=== PATIENT | female | born 1975 | race Caucasian/White ===

== ENCOUNTER 2018-09-07 18:30 | Emergency (ER) | payer BC ==
[~2018-09-07] VITALS: Ht 170.1 cm; Wt 77.1 kg
[~2018-09-07 18:30] MED LIST: ALA-CORT28.4 GM T; BACTRIM DS 8001 TAB PO; CLARITIN10 MG PO; COMBIVENT1 ARO IH; CONZIP100 MG PO; DOXYCYCLINE100 M3 PO; KEFLEX500 M1 PO; LEVAQUIN250 MG PO; LYRICA150 MG PO; MEDROL DOSEPAK4 MG PO; MOTRIN800 MG PO; PEPCID20 MG PO; TRAMADOL50 MG PO; ULTRAM50 MG PO; VICODIN ES 7501 TAB PO; ZITHROMAX Z PA250 MG PO
[2018-09-07 18:31] VITALS: BP 172/98
[2018-09-07 19:12] LABS: BASO % 0.2 % (0.0-1.0); EOS # 0.1 10*3/uL (0.0-0.4); EOS % 0.8 % (1.0-4.0); HEMATOCRIT 35.9 % (37.0-47.0); HEMOGLOBIN 12.2 g/dl (12.0-16.0); LYMPH % 37.4 % (27.0-41.0); MEAN CELL VOLUME 99.2 fl (81.0-99.0); MEAN CORPUSCULAR HGB 33.7 pg (27.0-31.0); MEAN PLATELET VOLUME 10.2 fl (9.6-12.3); MONO # 0.8 10*3/uL (0.1-1.0); MONO % 5.9 % (3.0-9.0); NEUT # 7.3 10*3/uL (2.3-7.9); NEUT % 55.3 % (47.0-73.0); PLATELET COUNT AUTOMATED 237 10*3/uL (130-400); RED BLOOD COUNT 3.62 10*6/uL (4.10-5.10); RED CELL DISTRI WIDTH 12.7 % (0-14.5); WHITE BLOOD COUNT 13.2 10*3/uL (4.8-10.8)
[2018-09-07 19:32] LABS: ALBUMIN 3.4 gm/dl (3.1-4.5); ALKALINE PHOSPHATASE 71 U/L (45-117); BUN 10 mg/dl (7-24); CHLORIDE 103 mmol/L (98-107); CREATININE 0.78 mg/dL (0.55-1.02); POTASSIUM 3.6 mmol/L (3.5-5.1); SGOT/AST 10 IU/L (3-35); SGPT/ALT 20 U/L (12-78); SODIUM 138 mmol/L (136-145); TOTAL PROTEIN 7.2 gm/dL (6.4-8.2)
[2018-09-07] MEDS ORDERED: AUGMENTIN 875875 MG PO (20:15)
[2018-09-07] MEDS ORDERED: TESSALON PERLE100 M1 PO (20:15)
[2018-09-07] MEDS ORDERED: PREDNISONE50 MG PO (20:15)
== END 2018-09-07 20:23 | disposition home or self-care (01) ==
LOC: ED 18:30
PROVIDERS: Nurse Practitioner Family
DX: J20.9 Acute bronchitis, unspecified (principal)

== ENCOUNTER 2018-09-21 13:11 | Emergency (ER) | payer BC ==
[~2018-09-21] VITALS: Ht 170.1 cm; Wt 78.0 kg
--- NOTE | ~2018-09-21 | EKG ---
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
--- NOTE | ~2018-09-21 | EKG ---
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
[~2018-09-21 13:11] MED LIST changes: +AUGMENTIN 875875 MG PO; +PREDNISONE50 MG PO; +TESSALON PERLE100 M1 PO
[2018-09-21 13:13] VITALS: BP 135/87
[2018-09-21 13:42] LABS: BASO % 0.3 % (0.0-1.0); EOS # 0.1 10*3/uL (0.0-0.4); HEMOGLOBIN 12.4 g/dl (12.0-16.0); LYMPH # 2.2 10*3/uL (1.3-4.4); LYMPH % 28.6 % (27.0-41.0); MEAN CELL VOLUME 97.8 fl (81.0-99.0); MEAN CORPUSCULAR HGB 33.7 pg (27.0-31.0); MEAN CORPUSCULAR HGB CONC 34.4 g/dl (33.0-37.0); MEAN PLATELET VOLUME 10.3 fl (9.6-12.3); MONO # 0.7 10*3/uL (0.1-1.0); MONO % 9.2 % (3.0-9.0); NEUT # 4.7 10*3/uL (2.3-7.9); NEUT % 60.6 % (47.0-73.0); PLATELET COUNT AUTOMATED 188 10*3/uL (130-400); RED BLOOD COUNT 3.68 10*6/uL (4.10-5.10); RED CELL DISTRI WIDTH 12.5 % (0-14.5); WHITE BLOOD COUNT 7.8 10*3/uL (4.8-10.8)
[2018-09-21 13:53] LABS: ACT PARTIAL THROMBO TIME 26.8 SECONDS (20.8-31.5); INTERNATIONAL NORM RATIO 0.9 (2.0-3.5)
[2018-09-21 14:00] LABS: ALBUMIN 3.2 gm/dl (3.1-4.5); ALKALINE PHOSPHATASE 75 U/L (45-117); BUN 8 mg/dl (7-24); CHLORIDE 104 mmol/L (98-107); CREATININE 0.67 mg/dL (0.55-1.02); POTASSIUM 4.1 mmol/L (3.5-5.1); SGOT/AST 29 IU/L (3-35); SGPT/ALT 97 U/L (12-78); SODIUM 135 mmol/L (136-145); TOTAL PROTEIN 6.9 gm/dL (6.4-8.2)
[2018-09-21 14:01] LABS: TROPONIN I < 0.015 ng/ml (<0.045)
[2018-09-21] MEDS ORDERED: Motrin,Rufen800 MG PO (17:13)
== END 2018-09-21 17:30 | disposition home or self-care (01) ==
LOC: ED 13:11
PROVIDERS: Emergency Medicine
DX: R09.1 Pleurisy (principal); Z79.2 Long term (current) use of antibiotics; Z79.899 Other long term (current) drug therapy; Z90.710 Acquired absence of both cervix and uterus

== ENCOUNTER 2019-09-12 12:43 | Emergency (ER) | payer BC ==
[~2019-09-12] VITALS: Ht 170.1 cm; Wt 78.9 kg
[~2019-09-12 12:43] MED LIST changes: +Motrin,Rufen800 MG PO
[2019-09-12 12:44] VITALS: BP 152/77
[2019-09-12] MEDS ORDERED: DOXYCYCLINE100 M3 PO (13:54)
[2019-09-12] MEDS ORDERED: IBUPROFEN600 MG PO (13:54)
== END 2019-09-12 14:01 | disposition left against medical advice (07) ==
LOC: ED 12:43
DX: L02.416 Cutaneous abscess of left lower limb (principal); L03.115 Cellulitis of right lower limb; R50.9 Fever, unspecified

== ENCOUNTER 2020-01-28 00:03 | Inpatient (IN) | payer BC ==
[~2020-01-28] VITALS: Ht 170.2 cm; Wt 83.6 kg
[2020-01-28] VITALS (8 sets, daily range): BP systolic 90–117; BP diastolic 55–70
[~2020-01-28 00:03] MED LIST changes: +IBUPROFEN600 MG PO
--- NOTE | 2020-01-28 00:54 | NUR ---
PT TO CT VIA WHEELCHAIR
[2020-01-28 00:58] LABS: BASO % 0.3 % (0.0-1.0); EOS # 0.1 10*3/uL (0.0-0.4); HEMATOCRIT 29.9 % (37.0-47.0); LYMPH # 3.7 10*3/uL (1.3-4.4); LYMPH % 26.4 % (27.0-41.0); MEAN CELL VOLUME 96.8 fl (81.0-99.0); MEAN CORPUSCULAR HGB 31.1 pg (27.0-31.0); MEAN CORPUSCULAR HGB CONC 32.1 g/dl (33.0-37.0); MONO # 0.6 10*3/uL (0.1-1.0); MONO % 4.1 % (3.0-9.0); NEUT # 9.6 10*3/uL (2.3-7.9); NEUT % 67.9 % (47.0-73.0); PLATELET COUNT AUTOMATED 316 10*3/uL (130-400); RED BLOOD COUNT 3.09 10*6/uL (4.10-5.10); RED CELL DISTRI WIDTH 13.5 % (0-14.5); WHITE BLOOD COUNT 14.1 10*3/uL (4.8-10.8)
--- NOTE | 2020-01-28 01:08 | NUR ---
PT BACK TO ROOM FROM CT. CALL LIGHT IN REACH. DENIES UNMET NEEDS. WILL CONTINUE TO MONITOR.
[2020-01-28 01:10] LABS: BUN 5 mg/dl (7-24); CHLORIDE 105 mmol/L (98-107); CREATININE 0.81 mg/dL (0.55-1.02); POTASSIUM 2.8 mmol/L (3.5-5.1); SODIUM 141 mmol/L (136-145)
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
--- NOTE | 2020-01-28 04:50 | NUR ---
Time: 449 A 45 year old FEMALE admitted to 4E under services of JAROD ROOT DO. Pt. arrived via stretcher from ER. Chief complaint: RT ARM ABSCESS. JAMARCUS LIU
--- NOTE | 2020-01-28 05:40 | NUR ---
DR. MENA NOTIFIED AT THIS TIME THAT PATIENT DENIES HAVING ANY HOME MEDICATIONS.Y
[2020-01-28 06:06] LABS: ALBUMIN 2.3 gm/dl (3.1-4.5); BASO % 0.3 % (0.0-1.0); BUN 5 mg/dl (7-24); CHLORIDE 106 mmol/L (98-107); CHOLESTEROL 106 mg/dL (<200); CREATININE 0.66 mg/dL (0.55-1.02); EOS # 0.1 10*3/uL (0.0-0.4); EOS % 1.1 % (1.0-4.0); HEMATOCRIT 25.6 % (37.0-47.0); LYMPH % 34.6 % (27.0-41.0); MEAN CELL VOLUME 96.6 fl (81.0-99.0); MEAN CORPUSCULAR HGB 30.9 pg (27.0-31.0); MEAN PLATELET VOLUME 10.6 fl (9.6-12.3); MONO # 0.6 10*3/uL (0.1-1.0); MONO % 7.2 % (3.0-9.0); NEUT % 56.6 % (47.0-73.0); PHOSPHOROUS 4.8 mg/dL (2.5-4.9); PLATELET COUNT AUTOMATED 237 10*3/uL (130-400); POTASSIUM 2.9 mmol/L (3.5-5.1); RED BLOOD COUNT 2.65 10*6/uL (4.10-5.10); RED CELL DISTRI WIDTH 13.3 % (0-14.5); SGOT/AST 9 IU/L (3-35); SGPT/ALT 17 U/L (12-78); SODIUM 139 mmol/L (136-145); TRIGLYCERIDES 91 mg/dl (<150); VLDL CHOLESTEROL 18 mg/dL (6-40); WHITE BLOOD COUNT 8.8 10*3/uL (4.8-10.8)
[2020-01-28 06:14] LABS: ALKALINE PHOSPHATASE 59 U/L (45-117); HDL CHOLESTEROL 20 mg/dl (40-60); LDL CHOLESTEROL 68 mg/dL (9-159); TOTAL PROTEIN 6.3 gm/dL (6.4-8.2)
--- NOTE | 2020-01-28 06:20 | NUR ---
NOTIFIED OF CONSULT AT THIS TIME FOR WOUND, POSSIBLE I&D OF RIGHT FOREARM, REQUESTED CT AND LAB RESULTS RELAYED. ORDERS RECEIVED TO KEEP PATIENT NPO NOW FOR POSSIBLE PROCEDURE.
[2020-01-28 07:03] LABS: VITAMIN D, 25-HYDROXY 25.9 ng/mL (30-100)
--- NOTE | 2020-01-28 10:29 | NUR ---
Power Systems Engineer in to talk to patient. Patient states lives at HOME with AND KIDS. There are NO steps in the home. Physician: [facility] Pharmacy: [facility] Home health services: NONE Patient's level of ADLs: INDEPENDENT Patient has working utilities: YES DME: NONE Follow-up physician's appointment after d/c: WILL BE MADE BY HOSPITALIST NURSE DIRECTOR ON DISCHARGE Does patient want to access PORTAL?: NO Discharge plan PT LIVES AT HOME WITH HER FAMILY AND IS INDEPENDENT IN HER CARE. DENIES SHE WILL HAVE ANY NEEDS ON DISCHARGE. PLAN IS TO RETURN HOME WITH ROCHELLEIY WHEN MEDICALLY STABLE. WILL CONTINUE TO FOLLOW. PT STATES WILL TAKE HER HOME. . JEREMY SUNSHINE
--- NOTE | 2020-01-28 13:10 | NUR ---
DR WATKINS CALLED RE: CONSULT AND NPO STATUS. MESSAGE LEFT. WILL AWAIT RETURN CALL
--- NOTE | 2020-01-28 15:48 | NUR ---
PT UPSET ABOUT NPO STATUS AND THAT DR WATKINS HASN'T BEEN HERE YET. DR WATKINS CALLED AGAIN RE: CONSULT AND NPO ORDER. MESSAGE LEFT TO CALL UNIT. WILL AWAIT RETURN CALL.
--- NOTE | 2020-01-28 16:00 | NUR ---
DR FROST CALLS UNIT, HE STATES HE IS COVERING FOR DR WATKINS. HE STATES HE WILL BE OVER TO SEE THE PATIENT.
--- NOTE | 2020-01-28 17:00 | NUR ---
DR FROST IN TO SEE PT. ORDERS RECEIVED FOR REGULAR DIET AND KEEP CURRENT DRSG ORDERS, WITH CHANGE OF OPTIFOAM AT THIS TIME.
--- NOTE | 2020-01-28 17:20 | NUR ---
DRSG CHANGED PER ORDERS. PT TOLERATED WELL. MODERATE SEROSANG/PURULENT DRAINAGE NOTED TO OLD DRSG. PT TOLERATED WELL
[2020-01-29] VITALS: BP 116/74
--- NOTE | 2020-01-29 05:00 | NUR ---
PATIENT DRESSING SOILED ON RIGHT FOREARM, DRESSING CHANGED AT THIS TIME. WILL CONTINUE TO MONITOR.
[2020-01-29 05:45] LABS: BUN 5 mg/dl (7-24); CHLORIDE 113 mmol/L (98-107); SODIUM 143 mmol/L (136-145)
[2020-01-29 06:16] LABS: BASO # 0.1 10*3/uL (0.0-0.1); BASO % 0.5 % (0.0-1.0); EOS # 0.1 10*3/uL (0.0-0.4); EOS % 0.8 % (1.0-4.0); HEMATOCRIT 27.7 % (37.0-47.0); LYMPH # 2.4 10*3/uL (1.3-4.4); LYMPH % 25.7 % (27.0-41.0); MEAN CELL VOLUME 96.2 fl (81.0-99.0); MEAN CORPUSCULAR HGB 30.9 pg (27.0-31.0); MEAN CORPUSCULAR HGB CONC 32.1 g/dl (33.0-37.0); MONO # 0.6 10*3/uL (0.1-1.0); NEUT # 6.3 10*3/uL (2.3-7.9); NEUT % 66.7 % (47.0-73.0); PLATELET COUNT AUTOMATED 295 10*3/uL (130-400); RED BLOOD COUNT 2.88 10*6/uL (4.10-5.10); RED CELL DISTRI WIDTH 13.5 % (0-14.5); WHITE BLOOD COUNT 9.5 10*3/uL (4.8-10.8)
[2020-01-29 08:00] VITALS: BP 121/88
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
== END 2020-01-29 10:40 | disposition left against medical advice (07) | DRG 871 ==
LOC: ED 00:03 → EDHOLD 04:02 → 4E 04:02
PROVIDERS: Internal Medicine; ADMIT Family Medicine
DX: A41.9 Sepsis, unspecified organism (principal); E43 Unspecified severe protein-calorie malnutrition; L02.413 Cutaneous abscess of right upper limb; R65.20 Severe sepsis without septic shock; D50.9 Iron deficiency anemia, unspecified; E87.6 Hypokalemia; R73.9 Hyperglycemia, unspecified; E55.9 Vitamin D deficiency, unspecified; Z53.29 Procedure and treatment not carried out because of patient's decision for other reasons; Z90.710 Acquired absence of both cervix and uterus; Z98.891 History of uterine scar from previous surgery; Z83.3 Family history of diabetes mellitus; Z80.8 Family history of malignant neoplasm of other organs or systems; Z84.89 Family history of other specified conditions; Z72.0 Tobacco use; Z71.6 Tobacco abuse counseling; Z68.28 Body mass index [BMI] 28.0-28.9, adult

== ENCOUNTER 2020-07-29 14:49 | Emergency (ER) | payer BC ==
[~2020-07-29] VITALS: Wt 76.2 kg
[2020-07-29 14:56] VITALS: BP 114/78
== END 2020-07-29 18:13 | disposition left against medical advice (07) ==
LOC: ED 14:49
DX: R19.7 Diarrhea, unspecified (principal); R11.10 Vomiting, unspecified; Z53.21 Procedure and treatment not carried out due to patient leaving prior to being seen by health care provider

== ENCOUNTER 2021-05-12 12:33 | Emergency (ER) | payer BC ==
[~2021-05-12] VITALS: Wt 61.2 kg
[2021-05-12 12:43] VITALS: BP 150/100
== END 2021-05-12 14:50 | disposition home or self-care (01) ==
LOC: ED 12:33
DX: T15.91XA Foreign body on external eye, part unspecified, right eye, initial encounter (principal); F17.200 Nicotine dependence, unspecified, uncomplicated; Z98.890 Other specified postprocedural states; Z90.711 Acquired absence of uterus with remaining cervical stump; Z87.442 Personal history of urinary calculi; X58.XXXA Exposure to other specified factors, initial encounter; Y93.89 Activity, other specified; Y92.89 Other specified places as the place of occurrence of the external cause; Y99.8 Other external cause status

== ENCOUNTER 2021-07-27 23:06 | Emergency (ER) | payer BC ==
[~2021-07-27] VITALS: Ht 170.1 cm; Wt 62.1 kg
[2021-07-27 23:13] VITALS: BP 167/97
[2021-07-27 23:32] LABS: BASO % 0.4 % (0.0-1.0); EOS # 0.1 10*3/uL (0.0-0.4); LYMPH # 3.7 10*3/uL (1.3-4.4); LYMPH % 40.3 % (27.0-41.0); MEAN CELL VOLUME 98.2 fl (81.0-99.0); MEAN CORPUSCULAR HGB 32.6 pg (27.0-31.0); MEAN CORPUSCULAR HGB CONC 33.2 g/dl (33.0-37.0); MEAN PLATELET VOLUME 9.6 fl (9.6-12.3); MONO # 0.6 10*3/uL (0.1-1.0); MONO % 6.9 % (3.0-9.0); NEUT # 4.7 10*3/uL (2.3-7.9); NEUT % 51.2 % (47.0-73.0); PLATELET COUNT AUTOMATED 274 10*3/uL (130-400); RED BLOOD COUNT 3.87 10*6/uL (4.10-5.10); RED CELL DISTRI WIDTH 12.3 % (0-14.5); WHITE BLOOD COUNT 9.3 10*3/uL (4.8-10.8)
[2021-07-27 23:37] LABS: BILIRUBIN Negative (Negative); BLOOD Trace-Lysed (Negative); CLARITY Cloudy (Clear); COLOR Yellow (Yellow); GLUCOSE Negative (Negative); KETONE Negative (Negative); LEUKO ESTERASE Trace (Negative); NITRITE Positive (Negative); SPECIFIC GRAVITY 1.025 (1.001-1.030)
[2021-07-27 23:46] LABS: URINE AMPHETAMINES > 1000 (1000ng/ml); URINE BARBITURATES < 200 (200ng/ml); URINE BENZODIAZEPINES < 200 (200ng/ml); URINE CANNABINOIDS (THC) > 50 (50ng/ml); URINE COCAINE < 300 (300ng/ml); URINE METHADONE < 300 (300ng/ml); URINE OPIATES < 300 (300ng/ml)
[2021-07-27 23:47] LABS: ALBUMIN 3.5 gm/dl (3.1-4.5); ALKALINE PHOSPHATASE 70 U/L (45-117); BUN 13 mg/dl (7-24); CHLORIDE 103 mmol/L (98-107); CREATININE 0.72 mg/dL (0.55-1.02); POTASSIUM 3.5 mmol/L (3.5-5.1); SGOT/AST 40 IU/L (3-35); SGPT/ALT 79 U/L (12-78); SODIUM 138 mmol/L (136-145); TOTAL PROTEIN 7.7 gm/dL (6.4-8.2)
[2021-07-27 23:48] LABS: BACTERIA 3+; CALCIUM OXALATE CRYSTALS 1+; EPITHELIAL CELLS TNTC; WBC 31-40 wbc/hpf (0-5)
[2021-07-27 23:50] LABS: URINE PHENCYCLIDINE < 25 (25ng/ml)
[2021-07-27 23:51] LABS: ACETAMINOPHEN (TYLENOL) < 5.0 ug/ml (10-30); ETHYL ALCOHOL < 3.0 mg/dl (<3)
== END 2021-07-27 23:49 | disposition left against medical advice (07) ==
LOC: ED 23:06
PROVIDERS: Internal Medicine
DX: F29 Unspecified psychosis not due to a substance or known physiological condition (principal)

== ENCOUNTER 2024-11-19 12:26 | Emergency (ER) | payer OTHER ==
[~2024-11-19] VITALS: Ht 170.1 cm; Wt 80.9 kg
[2024-11-19 12:46] VITALS: BP 137/92
[2024-11-19] MEDS ORDERED: Acetaminophen/Oxycodone 5 MG/325 MG TABLET PO ONE (13:00)
[2024-11-19] MEDS ORDERED: Amoxicillin/Clavulanate Pota 875 MG TAB PO ONE (13:00)
[2024-11-19] MEDS ORDERED: AMOX-CLAV 875-1 EACH PO (13:02)
[2024-11-19] MEDS ORDERED: MELOXICAM15 MG PO (13:02)
== END 2024-11-19 13:27 | disposition home or self-care (01) ==
LOC: ED 12:26
DX: K04.7 Periapical abscess without sinus (principal); R22.0 Localized swelling, mass and lump, head; I10 Essential (primary) hypertension; E78.5 Hyperlipidemia, unspecified; F17.200 Nicotine dependence, unspecified, uncomplicated; Z87.442 Personal history of urinary calculi; Z90.710 Acquired absence of both cervix and uterus; Z98.890 Other specified postprocedural states

== ENCOUNTER 2025-08-11 18:59 | Inpatient (IN) | payer SELFPAY ==
[~2025-08-11] VITALS: Ht 170.2 cm; Wt 80.4 kg
[~2025-08-11 18:59] MED LIST changes: +AMOX-CLAV 875-1 EACH PO; +MELOXICAM15 MG PO
[2025-08-11 20:45] VITALS: BP 184/78
[2025-08-11] MEDS ORDERED: SUBOXONE 8 MG-1 EACH BC (21:20)
[2025-08-11] MEDS ORDERED: BISACODYL 5 MG TAB PO PRN (21:35)
[2025-08-11] MEDS ORDERED: ACETAMINOPHEN 325 MG TAB PO PRN (21:35)
[2025-08-11] MEDS ORDERED: Ondansetron Hydrochloride 4 MG/2 ML VIAL IV PRN (21:35)
[2025-08-11] MEDS ORDERED: Vancomycin Hydrochloride 1,000 MG in SODIUM CHLORIDE 0.9% 250 ML IV SCH (21:55)
[2025-08-11 22:39] LABS: BASO # 0.0 10*3/uL (0.0-0.1); BASO % 0.6 % (0.0-1.0); EOS # 0.4 10*3/uL (0.0-0.4); EOS % 5.6 % (1.0-4.0); MEAN CELL VOLUME 100.0 fl (81.0-99.0); MEAN CORPUSCULAR HGB 32.8 pg (27.0-31.0); MEAN PLATELET VOLUME 10.9 fl (9.6-12.3); MONO # 0.7 10*3/uL (0.1-1.0); MONO % 11.3 % (3.0-9.0); NEUT # 2.3 10*3/uL (2.3-7.9); NEUT % 36.0 % (47.0-73.0); NUCLEATED RED BLOOD CELL 0.0 % (0.0-0.0); NUCLEATED RED BLOOD CELL 0.0 10*3/uL (0.0-0.0); PLATELET COUNT AUTOMATED 238 10*3/uL (130-400); RED CELL DISTRI WIDTH 12.0 % (0-14.5)
[2025-08-11 22:49] LABS: BUN 9 mg/dl (9-23)
[2025-08-12] VITALS: BP 148/84
[2025-08-12] MEDS ORDERED: Vancomycin Hydrochloride 1,000 MG in SODIUM CHLORIDE 0.9% 250 ML IV ONE
[2025-08-12] MEDS ORDERED: diphenhydrAMINE hydrochloride 50 MG/ML VIAL IV ONE (01:35)
[2025-08-12 02:01] VITALS: BP 147/86
[2025-08-12 06:36] LABS: ACT PARTIAL THROMBO TIME 32.0 SECONDS (20.0-32.1)
[2025-08-12 06:44] LABS: BASO # 0.0 10*3/uL (0.0-0.1); BASO % 0.9 % (0.0-1.0); EOS # 0.0 10*3/uL (0.0-0.4); EOS % 0.7 % (1.0-4.0); MEAN CELL VOLUME 97.0 fl (81.0-99.0); MEAN CORPUSCULAR HGB 33.2 pg (27.0-31.0); MEAN PLATELET VOLUME 10.7 fl (9.6-12.3); MONO # 0.1 10*3/uL (0.1-1.0); MONO % 2.1 % (3.0-9.0); NEUT # 3.3 10*3/uL (2.3-7.9); NEUT % 77.3 % (47.0-73.0); NUCLEATED RED BLOOD CELL 0.0 % (0.0-0.0); NUCLEATED RED BLOOD CELL 0.0 10*3/uL (0.0-0.0); PLATELET COUNT AUTOMATED 258 10*3/uL (130-400); RED CELL DISTRI WIDTH 12.0 % (0-14.5)
[2025-08-12 07:08] LABS: BUN 8 mg/dl (9-23); FREE T4 0.97 ng/dl (0.89-1.76); LDL CHOLESTEROL 91 mg/dL (9-159); SGPT/ALT 95 U/L (5-49)
[2025-08-12 08:00] VITALS: BP 146/76
[2025-08-12 08:28] LABS: VITAMIN D, 25-HYDROXY 43.0 ng/mL (30-100)
[2025-08-12] MEDS ORDERED: BUPRENORPHINE HCL/NALOXONE 8 MG-2 MG SL TABLET SL SCH (10:00)
[2025-08-12] MEDS ORDERED: FUROSEMIDE 40 MG/4 ML VIAL IV SCH (11:35)
[2025-08-12 12:00] VITALS: BP 113/72
[2025-08-12 16:00] VITALS: BP 131/44
[2025-08-12 20:00] VITALS: BP 100/78
[2025-08-13] VITALS: BP 144/88
[2025-08-13 06:24] LABS: BUN 16 mg/dl (9-23)
[2025-08-13 08:00] VITALS: BP 125/68
[2025-08-13] MEDS ORDERED: POTASSIUM CHLO10 ME4 PO (12:57)
[2025-08-13] MEDS ORDERED: LASIX20 MG PO (12:57)
== END 2025-08-13 16:00 | DRG 603 ==
LOC: 5E
PROVIDERS: Student in an Organized Health Care Education/Training Program; ADMIT Internal Medicine; ATTEND Internal Medicine
DX: L03.116 Cellulitis of left lower limb (principal); L03.115 Cellulitis of right lower limb; D53.9 Nutritional anemia, unspecified; Z66 Do not resuscitate; R73.9 Hyperglycemia, unspecified; F11.11 Opioid abuse, in remission; I10 Essential (primary) hypertension; R74.01 Elevation of levels of liver transaminase levels; Z98.891 History of uterine scar from previous surgery; Z87.891 Personal history of nicotine dependence; Z83.3 Family history of diabetes mellitus; Z80.8 Family history of malignant neoplasm of other organs or systems; Z86.19 Personal history of other infectious and parasitic diseases; Z86.018 Personal history of other benign neoplasm

== ENCOUNTER 2025-09-29 21:10 | Emergency (ER) | payer OTHER ==
[~2025-09-29 21:10] MED LIST changes: +LASIX20 MG PO; +POTASSIUM CHLO10 ME4 PO; +SUBOXONE 8 MG-1 EACH BC
[2025-09-29 21:36] LABS: BASO # 0.0 10*3/uL (0.0-0.1); BASO % 0.7 % (0.0-1.0); EOS # 0.3 10*3/uL (0.0-0.4); EOS % 6.1 % (1.0-4.0); MEAN CELL VOLUME 96.9 fl (81.0-99.0); MEAN CORPUSCULAR HGB 32.9 pg (27.0-31.0); MEAN PLATELET VOLUME 11.2 fl (9.6-12.3); MONO # 0.5 10*3/uL (0.1-1.0); MONO % 10.0 % (3.0-9.0); NEUT # 1.6 10*3/uL (2.3-7.9); NEUT % 30.0 % (47.0-73.0); NUCLEATED RED BLOOD CELL 0.0 % (0.0-0.0); NUCLEATED RED BLOOD CELL 0.0 10*3/uL (0.0-0.0); PLATELET COUNT AUTOMATED 142 10*3/uL (130-400); RED CELL DISTRI WIDTH 11.8 % (0-14.5)
[2025-09-29 21:50] LABS: BUN 8 mg/dl (9-23)
[2025-09-29 22:31] VITALS: BP 133/83
== END 2025-09-29 22:59 | disposition home or self-care (01) ==
LOC: ED 21:10
PROVIDERS: Nurse Practitioner Family
DX: R07.89 Other chest pain (principal); Z87.891 Personal history of nicotine dependence; Z98.890 Other specified postprocedural states; Z90.710 Acquired absence of both cervix and uterus; Z86.19 Personal history of other infectious and parasitic diseases; Z86.718 Personal history of other venous thrombosis and embolism; Z87.442 Personal history of urinary calculi